=== PATIENT | female | born 1970 | race Caucasian/White ===

== ENCOUNTER 2018-02-23 09:17 | Emergency (ER) | payer SELFPAY ==
[2018-02-23 10:31] LABS: URINE PH (Dip) POC 5.5 (5.0-8.5)
[2018-02-23 10:31] LABS: URINE BLOOD (Dip) POC Negative (NEGATIVE); URINE GLUCOSE (Dip) POC Negative (NEGATIVE); URINE KETONES (Dip) POC Negative (NEGATIVE); URINE LEUKOCYTE EST (Dip) POC Trace (NEGATIVE); URINE NITRITE (Dip) POC Negative (NEGATIVE); URINE TOTAL PROTEIN POC Negative (NEGATIVE)
[2018-02-23] MEDS: KETOROLAC 60 MG INJ IM ×2 (10:52→10:54)
== END 2018-02-23 11:41 | disposition home or self-care (01) ==
LOC: FTE 09:17
DX: M54.2 Cervicalgia (principal)
CPT/HCPCS: 72040; 72100; 81003; 81025; 96372; 99284-25